=== PATIENT | female | born 1935 | race Caucasian/White ===

== ENCOUNTER 2018-05-22 09:30 | Outpatient (CLI) | payer MEDICARE, OTHER ==
[2018-05-22] MEDS ORDERED: IOVERSOL 320 50 ML VIAL ONE (09:56)
--- NOTE | 2018-05-22 12:31 | CT Report ---
Reason: SACROCOCCYGEAL DISORDERS,NOT ELSEWHERE CLASSIFIED Procedure Date: 05/22/2018 Accession Number: [id number] / [id number] Procedure: CT - Abdomen/Pelvis W/O CPT Code: FULL RESULT: EXAM: CT ABDOMEN AND PELVIS (CT KUB) EXAM DATE: 05/22/2018 11:25 AM. CLINICAL HISTORY: Sacrococcygeal disorders, not elsewhere classified. COMPARISONS: Abdomen/pelvis w/contrast 05/19/2015 12:39 PM. TECHNIQUE: Routine axial helical CT imaging was performed through the abdomen and pelvis without IV contrast. Reconstructions: Coronal and sagittal. In accordance with CT protocol optimization, one or more of the following dose reduction techniques were utilized for this exam: automated exposure control, adjustment of mA and/or KV based on patient size, or use of iterative reconstructive technique. FINDINGS: Lung Bases: Unremarkable. Right Kidney/Ureter: No stones, hydronephrosis, or hydroureter. No perinephric fat stranding. Left Kidney/Ureter: The left renal collecting system is duplicated. No hydronephrosis or calculi. Other Solid Organs: Noncontrast images of the solid organs are grossly unremarkable. Gallbladder/Bile Ducts: Unremarkable. Peritoneal Cavity: No free fluid, free air or deepak adenopathy. Bowel is grossly unremarkable. Pelvic Organs: No bladder stones or wall thickening. Noncontrast images of the visualized pelvic organs are unremarkable. Vasculature: Unremarkable. Other: No fracture, dislocation or osseous lesion of the sacrum or coccyx. IMPRESSION: No abnormality of the sacrum or coccyx by CT. Duplicated left renal collecting system. RADIA
[2018-05-29] MEDS ORDERED: IOVERSOL 320 50 ML VIAL PO ONE (15:14)
== END 2018-05-22 09:31 | disposition home or self-care (01) ==
LOC: DI 09:30
PROVIDERS: ATTEND Nurse Practitioner Family
DX: M53.3 Sacrococcygeal disorders, not elsewhere classified (principal)
CPT/HCPCS: 74176

== ENCOUNTER 2018-06-24 15:01 | Outpatient (CLI) | payer MEDICARE, OTHER ==
--- NOTE | 2018-06-24 17:23 | XRAY Report ---
Reason: PAIN MEDIAL ASPECT L FOOT Procedure Date: 06/24/2018 Accession Number: [id number] / [id number] Procedure: XR - Foot 3 View LT CPT Code: FULL RESULT: EXAM: LEFT FOOT RADIOGRAPHY EXAM DATE: 06/24/2018 03:13 PM. CLINICAL HISTORY: PAIN MEDIAL ASPECT L FOOT. COMPARISON: None. TECHNIQUE: 3 views. FINDINGS: Bones: Qualitatively osteopenic. No fractures or bone lesions. Joints: Normal. No subluxations. Soft Tissues: Partial calcification of the Achilles tendon insertion. No soft tissue gas or radiopaque foreign body. IMPRESSION: Osteopenia with no osseous abnormality identified in the region of concern. RADIA
== END 2018-06-24 15:02 | disposition home or self-care (01) ==
LOC: DI 15:01
PROVIDERS: ATTEND Podiatrist
DX: M85.872 Other specified disorders of bone density and structure, left ankle and foot (principal)

== ENCOUNTER 2019-02-02 11:29 | Outpatient (CLI) | payer MEDICARE, OTHER ==
--- NOTE | 2019-02-02 18:00 | DEXA Report ---
Reason: POSTMENOPAUSAL Procedure Date: 02/02/2019 Accession Number: [id number] / [id number] Procedure: DEX - Dexa Spine and/or Hip CPT Code: FULL RESULT: EXAM: Dexa Spine and/or Hip DATE: 02/02/2019 11:53 AM CLINICAL HISTORY: POSTMENOPAUSAL TECHNIQUE: Dual energy x-ray absorptiometry (DXA) was performed on a Dynadec System. Regions measured are the AP Spine, femoral neck, and if needed forearm. COMPARISON: 03/08/2010 In accordance with the International Society for Clinical Densitometry (ISCD) guidelines, data from previous exams may be reanalyzed using current recommendations and techniques. This is done to allow a more accurate basis for comparison with the current study. FINDINGS: The data for the lumbar spine is as follows: BMD (g/cm/cm) T-SCORE Z-SCORE REGION L1 1.341 1.8 4.1 L2 1.415 1.8 4.1 L3 1.538 2.8 5.1 L4 1.400 1.7 4.0 TOTAL 1.426 2.0 4.4 NOTE: All evaluable vertebrae are used for classification The data for the hip is as follows: BMD (g/cm/cm) T-SCORE Z-SCORE REGION Neck 0.881 -1.1 1.4 TOTAL 0.942 -0.5 1.9 NOTE: The femoral neck or total proximal femur, whichever is lowest, is used for classification. IMPRESSION: THE WHO CLASSIFICATION BASED ON THE INTERNATIONAL REFERENCE STANDARD IS OSTEOPENIA, REFERENCE LEFT FEMORAL NECK. THE FRACTURE RISK IS INCREASED. RECOMMENDATION: Patients with diagnosis of osteoporosis or osteopenia should have regular bone mineral density assessment. For those eligible for Medicare, routine testing is allowed once every 2 years. Testing frequency can be increased for patients who have rapidly progressing disease or for those who are receiving medical therapy to restore bone mass. COMMENT: World Health Organization (WHO) definitions for osteoporosis and osteopenia: NORMAL BMD: T-score at -1.0 or higher, fracture risk is low OSTEOPENIA BMD: T-score between -1.0 and -2.5, fracture risk is increased. OSTEOPOROSIS BMD: T-score at -2.5 or lower, fracture risk is high. National Osteoporosis Foundation recommends: 1. Obtain adequate dietary calcium (at least 1200 mg per day) and vitamin D (400-800 international units per day). 2. Participate, as appropriate, in regular weightbearing and muscle-strengthening exercise. 3. Avoid tobacco use and reduce alcohol and caffeine intake. 4. For more detailed information see the website at www.NOF.org.
== END 2019-02-02 11:30 | disposition home or self-care (01) ==
LOC: DI 11:29
PROVIDERS: ATTEND Physician Assistant
DX: M85.88 Other specified disorders of bone density and structure, other site (principal)
CPT/HCPCS: 77080

== ENCOUNTER 2020-12-02 11:55 | Outpatient (CLI) | payer MEDICARE, OTHER | END 2020-12-02 11:56 | disposition home or self-care (01) | LOC: LAB.S 11:55 | PROVIDERS: ATTEND Internal Medicine | DX: E03.9 Hypothyroidism, unspecified (principal) | CPT/HCPCS: 36415; 84443 ==

== ENCOUNTER 2021-02-22 20:09 | Outpatient (CLI) | payer MEDICARE, OTHER | END 2021-02-22 20:10 | disposition short-term general hospital (02) | LOC: EMS 20:09 | DX: R10.33 Periumbilical pain (principal); R11.0 Nausea | CPT/HCPCS: A0425; A0427 ==

== ENCOUNTER 2021-02-23 12:43 | Emergency (ER) | payer MEDICARE, OTHER ==
[2021-02-23 13:29] LABS: BASOPHILS % (AUTO) 0.4 %; EOSINOPHILS % (AUTO) 0.4 %; HCT - HEMATOCRIT 37.9 % (37.0-47.0); HGB - HEMOGLOBIN 12.7 g/dL (12.0-16.0); MEAN CORPUSCULAR HEMOGLOBIN 32.6 pg (27.0-31.0); MEAN CORPUSCULAR HGB CONC 33.5 g/dL (32.0-36.0); MEAN CORPUSCULAR VOLUME 97.2 fL (81.0-99.0); MEAN PLATELET VOLUME 9.5 fL (7.9-10.8); MONOCYTES # (AUTO) 0.6 10^3/uL (0.0-1.0); MONOCYTES % (AUTO) 6.1 %; NEUTROPHILS # (AUTO) 7.5 10^3/uL (1.5-6.6); NEUTROPHILS % (AUTO) 81.8 %; PLT - PLATELET COUNT 222 10^3/uL (130-450); WHITE BLOOD COUNT 9.2 x10^3/uL (4.8-10.8)
[2021-02-23 13:43] LABS: ALBUMIN 4.3 g/dL (3.2-5.5); ALBUMIN/GLOBULIN RATIO 1.7 (1.0-2.2); BILIRUBIN,TOTAL 0.9 mg/dL (0.2-1.0); CALCIUM 8.8 mg/dL (8.5-10.3); CREATININE 0.6 mg/dL (0.4-1.0); TOTAL PROTEIN 6.8 g/dL (6.7-8.2)
[2021-02-23 13:43] LABS: BILIRUBIN,URINE NEGATIVE (NEGATIVE); GLUCOSE, URINE (UA) NEGATIVE (NEGATIVE); KETONES,URINE (UA) 15 mg/dL (NEGATIVE); LEUKOCYTE ESTERASE, URINE MODERATE (NEGATIVE); NITRITE,URINE NEGATIVE (NEGATIVE); OCCULT BLOOD,URINE NEGATIVE (NEGATIVE); PH,URINE 6.5 PH (5.0-7.5); PROTEIN,URINE NEGATIVE (NEGATIVE); UROBILINOGEN,URINE 0.2 (NORMAL) E.U./dL (NORMAL)
[2021-02-23 13:44] LABS: CLARITY,URINE CLEAR (CLEAR)
[2021-02-23 13:49] LABS: BACTERIA,URINE Few /HPF (None Seen); RBC,URINE 0-5 /HPF (0-5); SQUAMOUS EPITHELIAL CELL,UR FEW Squamous (<= Few)
[2021-02-23] MEDS ORDERED: ONDANSETRON ODT 4 MG TABLET TL STA (15:57)
[2021-02-23] MEDS ORDERED: LIDOCAINE VISCOUS 2% 15 ML UDC MM STA (15:58)
[2021-02-23] MEDS ORDERED: MAG HYDROX/AL HYDROX/SIMETH 30 ML UDC PO STA (15:58)
--- NOTE | 2021-02-23 16:58 | ED Physician Documentation ---
History of Present Illness - Stated complaint Stated Complaint: ABD PX - Chief complaint Chief Complaint: Abd Pain - Additonal information Additional information: 85-year-old female presents emergency department for evaluation of epigastric abdominal pain. She reports that this pain began 2 days ago and was fairly severe. She was seen at [facility] yesterday where she underwent both CT and ultrasound imaging that did not show any acute surgical process however there was some mural thickening of the stomach suspicious for either lymphoma or gastritis. She was started on Prilosec and discharged home. However the pain persists thus she presents here to the ER. No fevers, vomiting x1. No weight loss or night sweats. No cough. Fully vaccinated for COVID-19. Review of Systems Constitutional: denies: Fever, Chills Eyes: reports: Reviewed and negative Ears: reports: Reviewed and negative Throat: reports: Reviewed and negative Cardiac: reports: Reviewed and negative Respiratory: reports: Reviewed and negative GI: reports: Abdominal Pain, Nausea, Vomiting : reports: Reviewed and negative Skin: reports: Reviewed and negative PD PAST MEDICAL HISTORY - Past Medical History Past Medical History: Yes Cardiovascular: None Respiratory: None Endocrine/Autoimmune: HyPOthyroidism GI: None : None HEENT: None Psych: None Musculoskeletal: None - Past Surgical History Past Surgical History: 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 HEENT: Cataracts - Present Medications Home Medications: Ambulatory Orders Medication Instructions Recorded Confirmed Levothyroxine [Synthroid] 50 mcg PO QDAC 08/24/14 02/23/21 Lidocaine Viscous 2% [Xylocaine 5 ml MM Q4H #100 ml 02/23/21 Viscous 2%] Ondansetron Odt [Zofran] 4 mg TL Q6H PRN #10 tablet 02/23/21 Sucralfate [Carafate] 1 gm PO ACHS #60 tablet 02/23/21 - Allergies Allergies/Adverse Reactions: Allergies Allergy/AdvReac Type Severity Reaction Status Date / Time No Known Drug Allergies Allergy Verified 02/23/21 13:01 - Social History Does the pt smoke?: No Smoking Status: Never smoker Does the pt drink ETOH?: Yes ETOH Use: Wine Does the pt have substance abuse?: No PD ED PE NORMAL - General General: Alert and oriented X 3, No acute distress - HEENT HEENT: PERRL - Neck Neck: Supple, no meningeal sign - Cardiac Cardiac: RRR, No murmur - Respiratory Respiratory: Clear bilaterally - Abdomen Abdomen: Normal bowel sounds, Soft. No: Non tender (Epigastric tenderness without guarding or rebound. Negative McBurney's and Sanchez's) Results - Vitals Vitals: Vital Signs - 24 hr 02/23/21 02/23/21 12:54 15:08 Temperature 36.8 C 36.6 C Heart Rate 78 64 Respiratory 16 16 Rate Blood Pressure 153/72 H 146/63 H O2 Saturation 97 99 Oxygen O2 Source Room air - EKG (time done) 1615 Rate: Rate (enter#) (73) Rhythm: NSR [place]: Normal Intervals: Normal DE, Prolonged QT QRS: Normal Ischemia: Normal ST segments Compare to prior EKG: Old EKG unavailable Computer interpretation: Agree with computer - Labs Labs: Laboratory Tests 02/23/21 02/23/21 02/23/21 12:45 13:24 13:24 WBC 9.2 RBC 3.90 L Hgb 12.7 Hct 37.9 MCV 97.2 MCH 32.6 H MCHC 33.5 RDW 13.0 Plt Count 222 MPV 9.5 Neut # (Auto) 7.5 H Lymph # (Auto) 1.0 L [place] # (Auto) 0.6 Eos # (Auto) 0.0 Baso # (Auto) 0.0 Absolute Nucleated RBC 0.00 Nucleated RBC % 0.0 Sodium 137 Potassium 4.0 Chloride 100 L Carbon Dioxide 27 Anion Gap 10.0 BUN 17 Creatinine 0.6 Estimated GFR (MDRD) 95 Glucose 127 H Calcium 8.8 Total Bilirubin 0.9 AST 22 ALT 21 Alkaline Phosphatase 48 Troponin I High Sens Total Protein 6.8 Albumin 4.3 Globulin 2.5 Albumin/Globulin Ratio 1.7 Lipase 117 H Urine Color YELLOW Urine Clarity CLEAR Urine pH 6.5 Ur Specific [place] 1.015 Urine Protein NEGATIVE Urine Glucose (UA) NEGATIVE Urine Ketones 15 H Urine Occult Blood NEGATIVE Urine Nitrite NEGATIVE Urine Bilirubin NEGATIVE Urine Urobilinogen 0.2 (NORMAL) Ur Leukocyte Esterase MODERATE H Urine RBC 0-5 Urine WBC 4-5 Ur Squamous Epith Cells FEW Squamous Urine Bacteria Few Ur Microscopic Review INDICATED Urine Culture Comments INDICATED 02/23/21 16:10 WBC RBC Hgb Hct MCV MCH MCHC RDW Plt Count MPV Neut # (Auto) Lymph # (Auto) [place] # (Auto) Eos # (Auto) Baso # (Auto) Absolute Nucleated RBC Nucleated RBC % Sodium Potassium Chloride Carbon Dioxide Anion Gap BUN Creatinine Estimated GFR (MDRD) Glucose Calcium Total Bilirubin AST ALT Alkaline Phosphatase Troponin I High Sens 7.2 Total Protein Albumin Globulin Albumin/Globulin Ratio Lipase Urine Color Urine Clarity Urine pH Ur Specific [place] Urine Protein Urine Glucose (UA) Urine Ketones Urine Occult Blood Urine Nitrite Urine Bilirubin Urine Urobilinogen Ur Leukocyte Esterase Urine RBC Urine WBC Ur Squamous Epith Cells Urine Bacteria Ur Microscopic Review Urine Culture Comments PD MEDICAL DECISION MAKING - ED course Complexity details: reviewed old records, reviewed results, d/w patient ED course: 85-year-old female presents emergency department for evaluation of 2 days epi gastric abdominal pain. She was seen at [facility] yesterday had a very thorough work-up that included screening labs, CT scan as well as ultrasound. Imaging indicated that she had some gastric mural thickening consistent likely with a gastritis or an early lymphoma. She was advised to obtain close follow-up with GI. She was started on Prilosec but did not feel it improved her symptoms. Screening labs today are unremarkable. Screening EKG nonischemic and troponin is negative. She was given lidocaine with mild to moderate improvement in her symptoms. Zofran improved the nausea. We discussed that the gastritis can be controlled in the long-term with Prilosec as well as Carafate but she does need an EGD to determine the cause as cancer remains on the differential. She will follow up with Dr. Jacobsen to obtain the GI referral. In the short-term I will start her on Zofran for her nausea Carafate to be used at night as well as recommendation she continue the Prilosec daily. Lidocaine as needed for burning pain. Emergent return precautions discussed. Departure - Departure Disposition: Home, Self Care Clinical Impression: Epigastric pain Condition: Stable Record reviewed to determine appropriate education?: Yes Follow-Up: Solitario Jacobsen MD [Primary Care Provider] - Prescriptions: Sucralfate [Carafate] 1 gm PO ACHS #60 tablet Lidocaine Viscous 2% [Xylocaine Viscous 2%] 5 ml MM Q4H #100 ml Ondansetron Odt [Zofran] 4 mg TL Q6H PRN #10 tablet PRN Reason: Nausea / Vomiting Comments: Pat you are seen in the emergency department today for upper abdominal pain. I was able to review your records from [facility] and the imaging indicates inflammation or thickening in your stomach. This can be due to a condition called gastritis. However it is really important that you do get referred to a assurance senior manager so a camera can be placed into your stomach to determine the cause of the pain. In the short-term to help control your symptoms I have prescribed Zofran which will help with nausea. This can be taken under your tongue 2-3 times a day. I recommend you continue to take the Prilosec daily in the morning. Please take the Carafate at night this will help coat the stomach and improve the pain. For severe pain you can swallow 5 to 10 mL of the lidocaine. If at any point you feel that your symptoms are worsening, you have fainting spells, you have black or bloody stools then please return immediately to the ER for a second evaluation.
[2021-02-23] MEDS ORDERED: SUCRALFATE 1 GM/10 ML UDC PO STA (17:00)
[2021-02-23 17:13] VITALS: BP 134/78
== END 2021-02-23 17:10 | disposition home or self-care (01) ==
LOC: ED 12:43
DX: R10.13 Epigastric pain (principal)
CPT/HCPCS: 36415; 80053; 81001; 83690; 84484; 85025; 87086; 93005; 99283; 99284; A9270; Q0162; 81003

== ENCOUNTER 2022-12-26 14:07 | Outpatient (CLI) | payer MEDICARE ==
[2022-12-26 20:15] LABS: ALBUMIN 4.4 g/dL (3.2-5.5); ALBUMIN/GLOBULIN RATIO 1.8 (1.0-2.2); ALKALINE PHOSPHATASE 50 IU/L (42-121); ALT ALANINE AMINOTRANSFERASE 19 IU/L (10-60); AST ASPARTATE AMINOTRANSFERASE 23 IU/L (10-42); BILIRUBIN,TOTAL 0.4 mg/dL (0.2-1.0); BUN - BLOOD UREA NITROGEN 15 mg/dL (6-20); CALCIUM 9.6 mg/dL (8.5-10.3); CARBON DIOXIDE - CO2 31 mmol/L (21-32); CHLORIDE 103 mmol/L (101-111); CHOL/HDL RATIO 2.9 (<4.4); CHOLESTEROL 226 mg/dL; CREATININE 0.7 mg/dL (0.6-1.3); GFR - MDRD 79 (>89); GLUCOSE 105 mg/dL (74-104); HDL CHOLESTEROL 79 mg/dL; LDL CHOLESTEROL,CALCULATED 99 mg/dL; LDL/HDL RATIO 1.3 (<4.4); SODIUM 138 mmol/L (135-145); TOTAL PROTEIN 6.9 g/dL (6.4-8.9); TRIGLYCERIDES 240 mg/dL (48-352); VLDL CHOLESTEROL 48 mg/dL
[2022-12-26 20:34] LABS: ESTIMATED AVERAGE GLUCOSE 111 mg/dL (70-100); HEMOGLOBIN A1c% 5.5 % (4.27-6.07)
== END 2022-12-26 14:08 | disposition home or self-care (01) ==
LOC: LAB.S 14:07
PROVIDERS: ATTEND Internal Medicine
DX: E03.9 Hypothyroidism, unspecified (principal); E78.5 Hyperlipidemia, unspecified; Z79.899 Other long term (current) drug therapy; R73.01 Impaired fasting glucose
CPT/HCPCS: 36415; 80053; 80061; 83036; 83721; 84443

== ENCOUNTER 2023-09-02 18:45 | Emergency (ER) | payer MEDICARE ==
[2023-09-02 19:22] VITALS: BP 181/84; O2SAT 96
== END 2023-09-02 19:17 | disposition left against medical advice (07) ==
LOC: ED 18:45
DX: Z53.21 Procedure and treatment not carried out due to patient leaving prior to being seen by health care provider (principal)
CPT/HCPCS: 80053; 93005